=== PATIENT | female | born 1990 | race Caucasian/White ===

== ENCOUNTER 2025-11-14 11:35 | Day surgery (SDC) | payer OTHER, SELFPAY ==
[2025-10-31 12:26] VITALS: BMI 18.9
[2025-11-14] VITALS (7 sets, daily range): BP systolic 106–125; BP diastolic 76–92; PULSE 68–92; RESP 15–19; TEMP 36.2–37.1; O2SAT 100; BMI 19.3
--- NOTE | 2025-11-14 10:55 | WPDANESEPPF ---
Anes - Initial Pre Proc Eval Procedure: Operation Date: 11/14/25 13:15 Proposed Procedures p Bilateral Breast Augmentation Mammoplasty - Miguel Ángel Wiggins MD Date/Time: 11/14/25 10:55 Surgeon: Miguel Ángel Wiggins MD Pre Op Diagnosis: Micromastia Patient Data Age: 35 Gender: F Height: 1.68 m Weight: 53.3 kg Allergies Allergy/AdvReac Type Severity Reaction Status Date / Time cephalexin Allergy Intermediate Rash Verified 11/14/25 12:00 doxycycline Allergy Intermediate tongue Verified 11/14/25 12:00 swelling egg Allergy Intermediate chest Verified 11/14/25 12:00 tightness Milk Containing Products Allergy Intermediate chest Verified 11/14/25 12:00 (Dairy) tightness nickel Allergy Intermediate Rash Verified 11/14/25 12:00 nitrofurantoin Allergy Intermediate Rash Verified 11/14/25 12:00 nut - unspecified Allergy Intermediate chest Verified 11/14/25 12:00 tightness Penicillins Allergy Intermediate Hives Verified 11/14/25 12:00 Home Medications ?Medication ?Instructions ?Recorded ?Confirmed ?Type azelaic acid 15 % topical gel 1 applic topical DAILY 10/31/25 11/14/25 History d-mannose 500 mg capsule (AZO 500 mg PO DAILY 10/31/25 11/14/25 History D-Mannose) metronidazole 0.75 % topical cream 1 applic topical DAILY 10/31/25 11/14/25 History multivitamin (Daily Multi-Vitamin 1 tablet PO DAILY 10/31/25 11/14/25 History tablet) Patient hx anesthesia problems: none Family hx anesthesia problems: none Results Review: All pre-operative results and documents have been reviewed as part of the pre-operative evaluation. PMF Social History Social History Smoking status: Never smoker Second hand tobacco smoke exposure: Yes Substance use type: does not use Living arrangements: with family Spiritual care concerns: No Anes - Eval Final PreProcedure Day of Procedure 11/14/25 10:55 Heart: regular rate and rhythm Lungs: clear to auscultation Airway: Mallampati scale class 1 Neurological: alert and oriented Last oral intake: >/= 8 hours ASA classification: I Anesthetic plan: proceed Anesthesia type and monitoring: general Results Review: All pre-operative results and documents have been reviewed as part of the pre-operative evaluation. Informed Consent: The patient's anesthetic plan and its attendant risks and benefits were discussed with the patient/family/POA. Questions were solicited and answers provided to the satisfaction of the patient/family/POA.
--- OUTSIDE RECORDS SUMMARY | 2025-11-14 12:19 | XMS_ITS | Patient Health Record ---
Author Organization [facility] Address [address] [place] [address] Care Team Providers Care Fan Installer Name Role Phone Ferny MURPHY, Jaun Primary Care Provider Gregoria NICOLE FACULTY RESEARCH ASSISTANT, EMILY Unavailable Allergies Allergen (clinical drug ingredient) Drug/Non Drug Allergy documented on EMR Reaction Allergy Type Onset Date Status cephalexin Cephalexin rash Drug Allergy Activ e doxycycline Doxycycline tongue swelling Drug Allergy Active nickel Nickel rash Allergy Active nitrofurantoin Nitrofurantoin rash Drug Allergy Active Penicillin hives Drug Allergy Active Reason For Referral No Information Medications Medication SIG (Take, Route, Fr equency, Duration) Notes Start Date End Date Status Multivitamin Active D-Mannose 500 MG 2tabs oral twice a day Active Problems Problem Type SNOMED Code ICD Code Onset Dates Problem Status W/U Status Risk Notes Problem Glossodynia (61788574) 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
--- OUTSIDE RECORDS SUMMARY | 2025-11-14 12:19 | XMS_ITS | Clinical Summary ---
Author Organization [facility] Address [address] [place] [address] Care Team Providers Care Veneer Drier Name Role Phone Unavailable Primary Care Provider Unavailabl e Source Comments [facility],non-owned Affiliates and Associated Physician Practices is amultiple site organization consisting of ambulatory clinics and hospital sitesin [place], [place], [place] and [place]. This disclosure is being madepursuant to the Care Everywhere program and may not contain all information available regarding this patient. Last updated 18.[facility] Lucky Oyster Allergies Active Allergy Reactions Criticality Noted Date Comments Cephalexin 02/04/2017 Penicillins 02/04/2017 Medications * Be aware that medications may not be up to date on this document. Alwaysverify current medications with the patient. Ascorbic Acid (VITAMIN C) 500 MG Active norethindrone (BRAVO-BE) 0.35 MG tablet Take 1 Tab by mouth once daily Active Spironolactone (ALDACTONE PO) Activ e fluticasone propionate (FLONASE) 50 MCG/ACT nasal spray Lillian 2 Sprays into each nostril once daily 1 Bottle 03/06/2017 Active Social History Tobacco Use Types Packs/Day Years Used Date Smoking Tobacco: Never Comments Unknown Sex and Gender Information Value Date Recorded Sex Assigned at Not on file Legal Sex Female 6:32 AM CDT Gender Identity Not on file Sexual Orientation Not on file Last Filed Vital Signs Vital Sign Reading Time Taken Comments Blood Pressure 102/60 03/06/2017 8:43 AM CDT Pulse 103 03/06/2017 8:43 AM CDT Temperature 36.7 C (98.1 F) 03/06/2017 8:43 AM CDT Respiratory Rate - - Oxygen Saturation - - Inhaled Oxygen Concentration - - Weight 54.4 kg (120 lb) 03/06/2017 8:43 AM CDT Height 167.6 cm (5' 6) 03/06/2017 8:43 AM CDT Body Mass Index 19.37 03/06/2017 8:43 AM CDT Plan of Treatment Health Maintenance Due Date Last Done Comments HIV SCREENING 2003 HEPATITIS C SCREENING 05/16/2006 DTAP/TDAP/TD VACCINES (1 - Tdap) 2007 HEPATITIS B VACCINE (1 of 3 - 19+ 3-dose series) 2007 HPV VACCINE (1 - 3-dose SCDM series) 2015 DEPRESSION SCREENING 11/17/2024 COVID-19 VACCINE (1 - 2024-2 6 season) 2025 INFLUENZA VACCINE (#1) 2025 ZOSTER VACCINE (1 of 2) 2038 HIB VACCINE Aged Out No longer eligi ble based on patient's age to complete this topic MENINGOCOCCAL (Group B) VACC INE SHARED DECISION-MAKING Aged Out No longer eligibl e based on patient's age to complete this topic MENINGOCOCCAL GROUPS A/C/Y/W VACCINE Aged Out No longer eligible b ased on patient's age to complete this topic PNEUMOCOCCAL VACCINE Aged Out No long er eligible based on patient's age to complete this topic Insurance [facility] [employer] Member Subscriber Plan / Payer (Ef fective 2014-Present) Name:Margoth Honeycutt Member ID:Not on file Relation to Subscriber:Spouse Name:LEO HONEYCUTT Date of :1988 (Home) Address: [facility] [facility] [address] [place] [address] Payer ID:[id number] (NAIC) Type:O Address: [facility] [id number] [facility] [place]: [address] [place] [address]
--- OUTSIDE RECORDS SUMMARY | 2025-11-14 12:19 | XMS_ITS | Clinical Summary ---
Author Organization [facility] [address] [place] [address] Phone Care Team Providers Care Pulmonologist/Intensivist Name Role Phone Mike Jackson MD Unavailable [phone] Alea Kate DPM Unavailable [phone] Shirley Sarah MD Unavailable [phone] Lucho Cavazos MD Primary Care Provider [phone] Allergies Active Allergy Reactions Criticality Noted Date Comments Dairy - All Forms And Ingredients Chest tightness Medium 05/13/2024 Doxycycline Swelling Medium 05/24/2022 Eggshell Membrane Chest tightness Medium 05/13/2024 Cephalexin Rash Medium 08/14/2017 Nickel Rash Medium 05/13/2024 Nitrofurantoin Rash Low Reaction: RASH, Nuts Swelling,Chest tightness Medium 05/15/2024 Swelling in throat Penicillins Hives Medium Reaction: Hives, Tree Nuts Chest tightness Medium 05/13/2024 Medications multivitamin with minerals tablet Take 1 tablet by mouth daily Active d-mannose 500 mg capsule Take 1,000 mg by mouth 2 (two) times a day Active EPINEPHrine 0.3 mg/0.3 mL auto-injection syringe INJECT 1 PEN IN THE MUSCLE ONE TIME DIRECTED IN EMERGENCY Active D-MANNOSE ORAL Activ e oxyBUTYnin (DITROPAN) 5 mg tablet Take 1 tablet (5 mg total) by mouth 3 (three) times a day Active metroNIDAZOLE (METROCREAM) 0.75 % cream Active azelaic acid 15 % gel Active omeprazole (PriLOSEC) 40 mg capsuleIndicatio ns:Multiple food allergies,Dyspha raj, unspecified type Take 1 capsule (40 mg total) by mouth 2 (two) times a day 60 capsule 6 5 Active Active Problems Problem Noted Date Diagnosed Date Multiple food allergies 05/31/2025 Assessment & Plan (05/31/2025 11:04 AM CDT): Gastrointestinal symptoms from dairy, eggs, and peanuts managed by avoidance. Considered trial of high-dose omeprazole to reduce sensitivity and increase dietary flexibility. Patient biopsy negative for eosinophils however she was avoiding suspected food allergens prior to EGD. - Prescribe omeprazole 40 mg twice daily for 12 weeks. If noted improvement can reduced omeprazole to 40 mg once daily. - Advise gradual reintroduction of foods like eggs under supervisory investigative specialist guidance. - Monitor for reduction in food sensitivity symptoms. - Consult supervisory investigative specialist for food reintroduction strategy. Orders: omeprazole (PriLOSEC) 40 mg capsule; Take 1 capsule (40 mg total) by mouth 2 (two) times a day Rosacea 05/31/2025 Assessment & Plan (05/31/2025 11:04 AM CDT): Facial rashes suspected to be rosacea. Using metronidazole and azelaic acid creams. Managed by Dermatology. - Continue metronidazole and azelaic acid creams. Pneumonia of left lower lobe due to infectious o rganism 05/15/2024 Assessment & Plan (05/28/2024 12:36 PM CDT): Feeling well at this time. Denies any fevers, cough or shortness of breath. Dysphagia 05/13/2024 Assessment & Plan (05/31/2025 11:04 AM CDT): Choking episodes alleviated by food avoidance. High-dose PPI trial may reduce symptoms. - Monitor symptoms while on omeprazole. Orders: omeprazole (PriLOSEC) 40 mg capsule; Take 1 capsule (40 mg total) by mouth 2 (two) times a day Assessment & Plan (05/28/2024 12:36 PM CDT): Denies any coughing or choking with meals following hospital discharge. Heartburn 05/13/2024 Other specified diseases of intestine 05/13/2024 Food allergy, peanut 01/20/2024 Calculus of kidney 05/27/2023 Assessment & Plan (05/27/2023 9:04 AM CDT): No urinary symptoms or pain at this time, follow up with urology next month. Physical exam, annual 05/27/2023 Assessment & Plan (05/31/2025 11:04 AM CDT): Assessment & Plan (05/28/2024 12:36 PM CDT): Preventive exam; reviewed recommended preventive screenings and vaccinations. Encourage annual flu vaccine. Wear sunscreen/protective clothing when outdoors. Assessment & Plan (05/27/2023 9:06 AM CDT): Preventive exam; reviewed recommended preventive screenings and vaccinations. Encourage annual flu vaccine. Wear sunscreen/protective clothing when outdoors. Rectal bleeding 03/18/2023 Assessment & Plan (03/18/2023 9:11 AM CDT): Hemorroids since delivery 2 years ago usually only with some intermittent bleeding. However over last 2 weeks has noticed more bleeding in the toilet bowl and with wiping occurring with every BM Feel tearing pain and prolapsed hemorroids Normally has Soft formed normal BM daily, no changes in bowel habits or weight loss. Clinical Allergist thought accutane could lead to Crohn's disease, which the patient has been on since 11/2022. No abdominal pain, fevers, chills, weight loss, n/v, heartburn, reflux No NSAID use Mother with possible IBS Rectal exam showed small skin tag with no hemorrhoids, fissures or fistulas Labs showed normal CMP, TSH, CBC from 05/2022. Recent labs from 01/2023 showed normal AST ALT Plan Get CBC, BMP, ESR, CRP Schedule colonoscopy to evaluate for colitis stop Accutane for now although the link between the drug and IBD is not consistent Urinary frequency 08/19/2022 Assessment & Plan (08/19/2022 5:54 PM CDT): Improving with increased fluid intake. Will repeat urinalysis today. Discussed reducing caffeine an artificial sweeteners. Discussed red flag symptoms warranting immediate follow-up such as fevers, chills, back pain and hematuria. Dysuria 08/19/2022 Assessment & Plan (08/19/2022 5:54 PM CDT): Intermittent burning with urination. Discussed possibility of vaginitis, will check Bacterial Vaginosis/yeast today. Nausea 08/19/2022 Assessment & Plan (08/19/2022 5:57 PM CDT): Possibly secondary to antibiotic Bactrim, onset following 5 doses. HCG negative. Prescribed ondansetron as needed. No change in appetite, vomiting or diarrhea. Body mass index (BMI) 19.9 or less, adult 2021 Assessment & Plan (05/31/2025 11:04 AM CDT): Weight is stable. Would like to gain weight however weight gain has been difficult with dietary restrictions. Emphasized balanced diet and increased iron-rich foods. - Encourage consumption of iron-rich foods such as red meat and leafy greens. - Monitor weight and nutritional status. Assessment & Plan (05/28/2024 12:37 PM CDT): Patient is concerned with weight loss, reassured patient that weight is down 3 lb in the last 1 year. Has been overall stable. She struggles to increase caloric intake with multiple food sensitivities. Would benefit from referral to alining inspector. Assessment & Plan (05/27/2023 9:04 AM CDT): BMI is acceptable for this patient. Assessment & Plan (05/24/2022 3:24 PM CDT): Patient is concerned with weight loss following of second child. Denies any recent/sudden changes in weight. No changes in appetitive. Will continue to monitor. Vitamin D deficiency 05/24/2022 Assessment & Plan (05/27/2023 9:05 AM CDT): Continues weekly vitamin d supplementation, 5000 international units weekly. Assessment & Plan (05/24/2022 3:24 PM CDT): Continues vit d 5000 international units daily. Encounter for screening for lipid disorder 05/24 Assessment & Plan (05/31/2025 11:04 AM CDT): Orders: CBC with auto differential; Future Comprehensive metabolic panel; Future Lipid panel; Future Assessment & Plan (05/27/2023 9:05 AM CDT): Reviewed previous labs, fasting labs ordered today. Assessment & Plan (05/24/2022 3:25 PM CDT): Will check labs today. Reviewed exercise recommendations. Acne vulgaris 07/18/2005 Assessment & Plan (05/27/2023 9:04 AM CDT): Managed by dermatology, Dr. Sarah. Assessment & Plan (04/15/2022 1:09 PM CDT): Dermatology office visit, 03/19/2022, Shirley Sarah. Assessment & Plan (08/17/2018 10:04 AM CDT): She used to see Dr. Nazario before he retired. Acne seems to be under reasonable control at this time no specific intervention other than acne cream. We will see her back annually and as needed. Resolved Problems Problem Noted Date Diagnosed Date Resolved Date Encounter to establish care 05/24/2022 07/08/2022 Assessment & Plan (05/24/2022 3:24 PM CDT): Preventive exam; reviewed recommended preventive screenings and vaccinations. Encourage annual flu vaccine. Wear sunscreen/protective clothing when outdoors. Mastitis without abscess 08/23/2021 Overview (08/23/2021): Start Erythromycin 500mg BID x 10 days; enc cold packs prn for pain; start back on night feeding for now; start feed on lft side if right too painful; keep nurs Assessment & Plan (08/23/2021 6:32 AM CDT): Enc to keep nursing, do not stop; will call Friday to see how she is doing; enc to call office with any other questions or concerns. Furuncle of ear 08/12/2018 12/08/2020 Overview (08/17/2018): Behind left ear. Assessment & Plan (08/17/2018 10:05 AM CDT): She developed a painful swelling behind her left ear at the base of the external ear about five days ago. This morning it started drain a little bit. On exam, she has a small furuncle, about 0.5 cm in diameter or slightly more, with some mild surrounding redness. This should respond to local care. We will have her soak the area 2 or 3 times a day and applying mupirocin ointment afterwards. If not improving after two or three days, I sent in a standby prescription for doxycycline, risk of medication discussed. She has taken it before for her acne so she is familiar with this medication. Return early as needed for this problem. Encounters Date Type Department Care Team Description 10/12/2025 12:03 PM PARTY DEMONSTRATOR - 10/12/2025 11:59 PM [facility] Hospital Encounter [address] [address] Encounter for screening mammogram for malignant neoplasm of breast Discharge Disposition: Discharge to home or self care from Last 3 Months Immunizations Immunization Administration Dates Next Due Flucelvax Influenza Quad 09/05/2020 Influenza, Quadrivalent, Eliz l Culture-based MDCK, Preservative Free, Antibiotic Free, Intramuscular 07/28/2022 Influenza, Trivalent, IM (MDV) 08/31/2021 Influenza, Unspecified 08/17/2024(Deferr ed: Patient Refused),08/17/2023(Deferred: Patient Refused),08/17/2023(Deferred: Patient Refused),07/28/2022,08/31/2021 Tdap 02/26/2021,08/17/2016,05/10/2016 Surgical History Surgery Date Site/Laterality Comments TONSILLECTOMY 11/17/2005 - 11/16/2006 Tonsillectomy TOENAIL EXCISION 04/11/2020 Left Hallux ingrown toenail, medial and lateral. Partial excision. Dr. Alea Kate. VAGINAL DELIVERY 05/11/2021 DERMOID CYST EXCISION 04/26/2022 Inflamed cyst excised, left anterior shoulder. Dr. Sarah, see scanned note. COLONOSCOPY 03/20/2023 Medical History Medical History Date Comments Acne on Proactiv Tonsillitis Urinary tract infection Kidney stone Family History Medical History Relation Name Comments Skin cancer Brother Cancer -skin; Cancer Father Kennedy Acosta Hypertension Father Kennedy Acosta Hypertension; Skin cancer Father Kennedy Acosta Cancer -skin; /Cancer, skin; Cancer Maternal Grandmother Dora Kaur Colon cancer Maternal Grandmother Dora Kaur Cancer Mother Gabby Acosta Diabetes Mother Gabby Acosta Hypertension Mother Gabby Acosta Hypertension; Melanoma Mother Gabby Acosta Skin cancer Mother Gabby Acosta Cancer -skin; /Cancer, skin; Alzheimer's disease Paternal Grandfather Rodriguez Hi on Alzheimer's disease Paternal Grandmother Kate Hi on Cancer Sister 2 Tamara Chaptico Melanoma Sister 2 Tamara Tito Melanoma; Relation Name Status Comments Brother Father Kennedy Acosta Alive Maternal Grandmother Dora Kaur Mother Gabby Acosta Alive Paternal Grandfather Rodriguez Acosta Paternal Grandmother Kate Acosta Sister 1 Alive Sister 2 Tamara Chaptico Social History Tobacco Use Types Packs/Day Years Used Date Smoking Tobacco: Never Smokeless Tobacco: Never Alcohol Use Standard Drinks/Week Comments No 0 (1 standard drink = 0.6 oz pur e alcohol) AUDIT-C Answer Date Recorded Q1: How often do you have a drink containing alcohol? Never 06/11/2024 Q2: How many drinks containi ng alcohol do you have on a typical day when you are drinking? Patient does not drink Q3: How often do you have si x or more drinks on one occasion? Never 06/11/2024 PHQ-2 Answer Date Recorded PHQ-2 Total Score (If total score is 3 or more points, staff should administer the PHQ-9) 0 05/31/2025 [place] Depression Scale Answer Date Recorded [place] Depression Scale Total 0 06/11/2021 The thought of harming myself has occurred to me . Never 06/11/2021 Personal Safety Answer Date Recorded Have you ever been in or are you currently in a harmful physical or emotional relationship or is someone making you feel afraid or unsafe? Denies 06/11/2024 Comments No Sex and Gender Information Value Date Recorded Sex Assigned at Not on file Legal Sex Female 10:28 AM PARTY DEMONSTRATOR Gender Identity Female 01/22/2020 9:20 PM PARTY DEMONSTRATOR Sexual Orientation Straight 01/22/2020 9: 20 PM PARTY DEMONSTRATOR Obstetrics History Para Term AB IAB SAB Ectopic Multiple Livin g Live Births 2 2 2 0 2 2 Date Outcome GA Total Labor Labor/2nd/3rd Weight Sex Type Anes PTL Sandra A1 A5 Name Clin 6 Term 3.515 kg (7 lb 12 oz) F Vag-S pont Livin g 2020 Term 39w 1d 2h 15m 1h 19m/0h 52m/0h 04m 4.449 kg (9 lb 12.9 oz) M Vag-S pont Epidur al N Livin g 8 9 TANGELA ,VALERY Jackson , Mike Andrew MD Complications:Precipitous La bor (<3 hours) Delivery Location:This [facility]) Last Filed Vital Signs Vital Sign Reading Time Taken Comments Blood Pressure 102/74 05/31/2025 8:48 AM CDT Pulse 88 05/31/2025 8:48 AM CDT Temperature 37 C (98.6 F) 05/31/2025 8:48 AM CDT Respiratory Rate 16 05/31/2025 8:48 AM CDT Oxygen Saturation 98% 05/31/2025 8:48 AM CDT Inhaled Oxygen Concentration - - Weight 53.5 kg (117 lb 15.1 oz) 025 12:07 PM PARTY DEMONSTRATOR Height 167.6 cm (5' 5.98) 10/12/2025 1 2:07 PM PARTY DEMONSTRATOR Body Mass Index 19.05 10/12/2025 12:07 PM PARTY DEMONSTRATOR Plan of Treatment Health Maintenance Due Date Last Done Comments Varicella Vaccines (1 of 2 - 13+ 2-dose series) 2001 Hepatitis B Screening 2006 HPV Vaccines (1 - 3-dose SCDM series) 2015 Cervical Cancer Screening 09/09/20242022, 06/18/2021, 04/06/2019, Additional history exists Regular Well Visit/Exam 18-64 05/28/2025 05/28/2024, 09/09/2023, 05/27/2023, Additional history exists Covid-19 Vaccine ( - 2024- season) 2025 12/24/2021, 06/22/2021, 06/01/2021 Influenza Vaccine (#1) 2025 , 07/28/2022, 08/31/2021, Additional history exists Depression Screening 05/31/2026 05/31/2025, 05/28/2024, 09/09/2023, Additional history exists DTaP/Tdap/Td Vaccine (4 - Td or Tdap) 02/26/2031 02/26/2021, 08/17/2016, 05/10/2016 Hepatitis C Screening Completed 11/08/2020 Pneumococcal vaccine <65 Aged Out No longer eligible based on patient's age to complete this topic Procedures Procedure Name Priority Date/Time Associated Diagnosis Comments SCREENING MAMMOGRAM BILATERAL W NESTOR Schedule Routine, Read Routine (OP Routine) 10/12/2025 12:23 PM PARTY DEMONSTRATOR Encounter for screening mammogram for malignant neoplasm of breast PAP, REFLEX HPV Routine 09/09/2023 9:28 AM CDT Well woman exam HEPATITIS C ANTIBODY Routine 11/08/2020 9:41 AM PARTY DEMONSTRATOR care, subsequent , first trimester from Last 3 Months or Most Recently Relevant to Health Maintenance Results * Screening Mammogram Bilateral W Nestor (10/12/2025 12:23 PM PARTY DEMONSTRATOR) Anatomical Region Laterality Modality Breast Bilateral Mammography Impressions 10/12/2025 12:48 PM PARTY DEMONSTRATOR Bilateral No evidence of malignancy in either breast. OVERALL BI-RADS FINAL ASSESSMENT: 1 - Negative RECOMMENDATION: Recommend bilateral annual screening mammography. Consider supplemental screening with breast MRI every 1-2 years given extremely dense breast tissue. If breast MRI cannot be performed, consider contrast-enhanced mammography as an alternative. Narrative 10/12/2025 12:48 PM PARTY DEMONSTRATOR EXAMINATION: Screening Mammogram Bilateral W Nestor: 10/12/2025 COMPARISON: This is the patient's baseline mammogram. TECHNIQUE: Mammography was performed with 2D and 3D digital breast tomosynthesis (DBT) images. CAD was utilized. BREAST PARENCHYMAL COMPOSITION: The breasts are extremely dense, which lowers the sensitivity of mammography. FINDINGS: Bilateral There is no suspicious mass, calcification, or architectural distortion in either breast. us Miguel Ángel Wiggins MD IMG MAMMO PROCEDURES Mindy l Result * Pap, reflex HPV (09/09/2023 9:28 AM CDT) CLINICAL INFORMATION: Bhumika Dumont Comment:Routine exam LMP Bhumika Dumont Comment:09-04-23 Previous Pap Bhumika Dumont Comment:NONE GIVEN Prev. Bx Bhumika Dumont Comment:NONE GIVEN SOURCE: Bhumika Dumont Comment:Cervix, Endocervix Pap, specimen adequacy Bhumika Dumont Comment: Satisfactory for evaluation. Endocervical/transformation zone component present. HPV interp Bhumika Dumont Comment: Cytology Results: Negative for intraepithelial lesion or malignancy. COMMENTS Bhumika Dumont Comment: This Pap test has been evaluated with computer assisted technology. Digital Printer Operator Erickson Truong Comment: JAYESH SOTO(ASCP) CT Screening Location: [place] [address] [place] [address] Comment Bhumika Dumont Comment: EXPLANATORY NOTE: The Pap is a screening test for cervical cancer. It is not a diagnostic test and is subject to false negative and false positive results. It is most reliable when a satisfactory sample, regularly obtained, is submitted with relevant clinical findings and history, and when the Pap result is evaluated along with historic and current clinical information. Thin prep 09/09/2023 9:28 AM CDT 09/10/2023 4:59 AM CDT Mike Jackson MD LAB CYTOLOGY ORDERABLES Fi nal Result Performing Organization Address City/[facility]/ZIP Co de Phone Number [employer] [address] [place] [address] * Hepatitis C antibody (11/08/2020 9:41 AM PARTY DEMONSTRATOR) Hep C Ab NON-REACTI VE NON-REACT CHERRIE [facility] SIGNAL TO CUT-OFF 0.01 <1.00 [facility] Comment: HCV antibody was non-reactive. There is no laboratory evidence of HCV infection. In most cases, no further action is required. However, if recent HCV exposure is suspected, a test for HCV RNA (test code 20603) is suggested. For additional information please refer to http://education.[employer]/faq/YSZ13l2 (This link is being provided for informational/ educational purposes only.) Blood specimen (specimen) 11/08/2020 9:41 AM PARTY DEMONSTRATOR 11/08/2020 9:44 AM PARTY DEMONSTRATOR Kristi Robles NP LAB MICROBIOLOGY - GENERAL ORDER FLORENCIO Final Result Performing Organization Address City/[facility] Co de Phone Number [employer] [address] [place] [address] from Last 3 Months or Most Recently Relevant to Health Maintenance Insurance BRENNAN JAMES Member Subscriber Plan / Payer (Ef fective 2012-Present) Name:Margoth Honeycutt Relation to Subscriber:Spouse Name:JOSH HONEYCUTT Date of :1984 (Home) Address: [address] [place] [address] Payer ID:[id number] ([employer]) Group ID:[id number] Type:CIGNA HMO/PPO Address: [address] [place] [address] [facility] CIGNA Advance Directives For more information, please contact: [phone] * Full Code (Latest Code Status on File) Date Activated Date Inactivated Comments 06/11/2024 10:52 AM 06/11/2024 6:04 PM * Full Code Date Activated Date Inactivated Comments 06/11/2024 10:52 AM 06/11/2024 10:52 AM * Full Code Date Activated Date Inactivated Comments 05/15/2024 5:03 AM 05/16/2024 3:40 PM * Full Code Date Activated Date Inactivated Comments 05/14/2024 11:39 AM 05/14/2024 5:36 PM * Full Code Date Activated Date Inactivated Comments 05/14/2024 11:39 AM 05/14/2024 11:39 AM Care Teams Pulmonologist/Intensivist Relationship Specialty Start Date End Date Lucho Cavazos MD [address] [place] [address] PCP - General Family Medicine 05/24/22 Mike Jackson MD [address] [address] Consulting Physician Obstetrics and Gynecology 08/14/17 Alea Kate DPM [address] [place] [address] Consulting Physician Foot and Ankle Surg 04/16/20 Shirley Sarah MD [address] [place] [address] Consulting Physician Dermatology 03/19/22
[2025-11-14] MEDS: LACTATED RINGERS 1,000 ML 30 ML IV CONT (12:34)
[2025-11-14] MEDS: TRANEXAMIC ACID 1,000 MG/10 ML AMPUL 1000 MG IV PUSH (12:34)
--- NOTE | 2025-11-14 13:12 | WPDHPUPDATE1 ---
History and Physical Update Update Date/Time: 11/14/25 13:12 History and Physical has been reviewed, including an updated exam of the patient. There are NO changes in the patient's condition. Risks, benefits, and alternatives have been discussed and questions answered. Patient agrees to proceed with procedure.
--- NOTE | 2025-11-14 13:12 | W.PM.PROC2 ---
Procedure Note - Detailed Date of Procedure 11/14/25 Pre-op Diagnosis Micromastia Post-op Diagnosis Same Procedure Performed Bilateral augmentation mammaplasty Surgeon Miguel Ángel Wiggins MD Anesthesia General Findings Bilateral Chris Jones Cohesive 325cc Dual Plane 1 Right: REF# [id number] SN [id number] Left: REF# [id number] SN [id number] Description of Procedure She is here today for bilateral breast augmentation. Previously and again today the risks, benefits, alternatives were discussed in extensive detail. Again discussed implant plane and sizing to ensure we were in full agreement. Discussed the importance of nutrition. I wanted her to be very realistic about the risks involved as well as expectations. We discussed aftercare and what to monitor for. Made sure answered all of her questions to her satisfaction today and consent was obtained. Marked in the preoperative holding area with their verification. The patient was taken to the operating room placed supine on the operating table. Anesthesia was provided by anesthesiology. A surgical time-out was taken. We cleansed the skin and 1% lidocaine and 0.25% Marcaine with epinephrine was used anesthetize as a field block. She was prepped and draped in a standard sterile fashion. Tegaderm nipple Woodward were placed. A 15 blade used to make an incision along the inframammary fold. Dissection was continued at 45 degree angle until the chest wall as identified. I incised the pectoralis major along its inferior border and completely released the inferior border leaving the medial border intact. I created a subpectoral pocket in the appropriate dimensions based on our preoperative planning for the implant. I then copiously irrigated with saline solution and verified a strict hemostasis. Next the use a triple antibiotic and Betadine containing solution to irrigate the pocket. I washed my gloves with the triple antibiotic and Betadine solution. We washed the implant immediately upon opening it with this solution and only opened it when we needed it. I used implant funnel and no-touch technique. The implant was introduced into the pocket using the funnel. Having verified positioning of the implant this was closed using 2-0 PDS followed by 3-0 Monocryl in a running subcuticular 4-0 Monocryl followed by tissue glue. Fluffs and surgical bra were placed. Patient was awoke and taken to PACU without difficulty. All instrument sponge counts were correct at the end of the case. Estimated Blood Loss 20 Drains No Packing No Pathology None sent Complications No immediate complications Condition Stable Disposition PACU
[2025-11-14] MEDS: CLINDAMYCIN 900 MG/NS 50 ML 900 MG/50 ML PIGGYBACK 50 MG IVPB (13:24)
[2025-11-14] MEDS: BUPivacaine HCL 0.5% 10 ML AMP 30 ML (13:44)
[2025-11-14] MEDS: LIDO 1%/EPINEPHRINE 1:100,000 20 ML VIAL (13:46)
[2025-11-14] MEDS: GENTAMICIN SULFATE INJ 80 MG/2 ML VIAL 160 MG (13:46)
[2025-11-14] MEDS: CLINDAMYCIN PHOS 900 MG (13:47)
[2025-11-14] MEDS: ACETAMINOPHEN 500 MG TABLET 1000 MG PO (15:14)
[2025-11-14] MEDS: ONDANSETRON HCL ODT 4 MG TABLET PO (15:44)
== END 2025-11-14 15:50 | disposition home or self-care (01) ==
PROVIDERS: PCP Family Medicine; Visit Provider Surgery Plastic and Reconstructive Surgery
PROC: (CPT 19325; principal; 2025-11-14 13:15)
DX: Z41.1 Encounter for cosmetic surgery (principal); N64.82 Hypoplasia of breast
CPT/HCPCS: 19325; J3290